=== PATIENT | female | born 1995 ===

== ENCOUNTER 2017-04-19 15:22 | Emergency (ER) | payer OTHER ==
[2017-04-19 15:26] VITALS: BMI 27.3
[2017-04-19 15:28] VITALS: TEMP 98.6
--- NOTE | 2017-04-19 16:31 | C.PDOC ---
History Of Present Illness 21 y/o female presents to ED with complaints of left sided TROY for 1 week. Patient she received bad news and that night began to feel pain on the left side of head. Patient reports taking Advil for pain 2 tablets 2 times a day with some relief. Pain is a 8/10 constant but intermittently worse. Patient denies cough, ear pain, fever, chills and reports mild nausea but denies abdominal pain or vomiting. No other complaints at this time. Time Seen by Provider: 04/19/17 15:52 Chief Complaint (Nursing): Headache History Per: Patient History/Exam Limitations: no limitations Onset/Duration Of Symptoms: Days Current Symptoms Are (Timing): Still Present Past Medical History Reviewed: Historical Data, Nursing Documentation, Vital Signs Vital Signs: Last Vital Signs Temp 98.6 F 04/19/17 15:27 Pulse 84 04/19/17 15:27 Resp 18 04/19/17 15:27 BP 126/68 04/19/17 15:27 Pulse Ox 100 04/19/17 16:36 Family History: States: No Known Family Hx - Social History Hx Tobacco Use: No Hx Alcohol Use: Yes (social) Hx Substance Use: No - Immunization History Hx Tetanus Toxoid Vaccination: No Hx Influenza Vaccination: No Hx Pneumococcal Vaccination: No Review Of Systems Except As Marked, All Systems Reviewed And Found Negative. Constitutional: Negative for: Fever, Chills Gastrointestinal: Positive for: Nausea. Negative for: Vomiting, Diarrhea Neurological: Positive for: Headache. Negative for: Weakness, Dizziness Physical Exam - Physical Exam Appears: Non-toxic, No Acute Distress Skin: Normal Color, Warm Head: Atraumatic, Normacephalic Oral Mucosa: Moist Neck: Normal ROM, Supple, Other (Muscle Spasm to neck and shoulders) Extremity: Normal ROM, Capillary Refill (<2 seconds) Neurological/Psych: Oriented x3 ED Course And Treatment O2 Sat by Pulse Oximetry: 100 (Ra) Pulse Ox Interpretation: Normal Disposition - Disposition Referrals: [facility] [Outside] Disposition: HOME/ ROUTINE Disposition Time: 17:32 Condition: STABLE Prescriptions: diaZEpam [Valium] 5 mg PO TID #15 tab Ibuprofen [Motrin] 600 mg PO TID #15 tab Instructions: Acute Headache (ED) Forms: Gen Discharge Inst Maori - POA Present On Arrival: None - Clinical Impression Clinical Impression: Headache - Scribe Statement The provider has reviewed the documentation as recorded by the Tiffibjoshua Darnell All medical record entries made by the Tiffibjoshua were at my direction and personally dictated by me. I have reviewed the chart and agree that the record accurately reflects my personal performance of the history, physical exam, medical decision making, and the department course for this patient. I have also personally directed, reviewed, and agree with the discharge instructions and disposition.
[2017-04-19 17:42] VITALS: BP 119/68; PULSE 75; RESP 16; O2SAT 97
== END 2017-04-19 17:41 | disposition home or self-care (01) ==
LOC: C.ER 15:22
DX: R51 Headache (principal)